=== PATIENT | female | born 1960 | race Hispanic/Latino ===

== ENCOUNTER 2019-04-02 18:29 | Inpatient (IN) | payer SELFPAY ==
[~2019-04-02] VITALS: Ht 149.9 cm; Wt 76.0 kg
[2019-04-02] MEDS ORDERED: SODIUM CHLORIDE 0.9% 1000ML 1,000 ML IV ONE (19:12)
[2019-04-02 19:14] LABS: BASOPHILS % (AUTO) 0.7 % (0.0-5.0); EOSINOPHILS % (AUTO) 2.2 % (0.0-8.0); HEMATOCRIT 31.5 % (36-48); LYMPHOCYTES % (AUTO) 9.5 % (21.0-51.0); MEAN CORPUSCULAR HEMOGLOBIN 24.1 pg (27.0-33.0); MEAN CORPUSCULAR HGB CONC 32.6 g/dL (32.0-36.0); MEAN CORPUSCULAR VOLUME 73.8 fL (79-99); MONOCYTES % (AUTO) 8.2 % (3.0-13.0); NEUTROPHILS % (AUTO) 79.4 % (40.0-77.0); NUCLEATED RED BLOOD CELLS 0.1 % (0.0-0.19); PLATELET COUNT (AUTO) 432 K/uL (130-400); RED BLOOD CELL COUNT(AUTO) 4.27 MIL/uL (4.00-5.50); RED CELL DISTRIBUTION WIDTH 15.9 % (11.0-15.5); WHITE BLOOD COUNT (AUTO) 18.5 K/uL (4.8-10.8)
[2019-04-02 19:15] LABS: APPEARANCE,URINE SL CLOUDY (CLEAR); BILIRUBIN,URINE NEGATIVE (NEGATIVE); COLOR,URINE YELLOW (YELLOW); GLUCOSE, URINE (UA) NEGATIVE (NEGATIVE); KETONES,URINE NEGATIVE (NEGATIVE); LEUKOCYTE ESTERASE ,URINE MODERATE (NEGATIVE); NITRATE,URINE NEGATIVE (NEGATIVE); OCCULT BLOOD,URINE LARGE (NEGATIVE); PROTEIN,URINE 30 mg/dL (NEGATIVE)
[2019-04-02 19:30] LABS: ALBUMIN 2.9 g/dL (3.5-5.0); BILIRUBIN,TOTAL 0.5 mg/dL (0.2-1.0); POTASSIUM 3.7 mmol/L (3.5-5.1); TOTAL PROTEIN, SERUM 8.4 g/dL (6.0-8.3)
[2019-04-02 19:35] LABS: BACTERIA,URINE Moderate /HPF (None Seen); MUCUS,URINE Few LPF (None Seen)
[2019-04-02] MEDS ORDERED: KETOROLAC TROMETHAMINE 30MG/ML ONE (20:22)
[2019-04-02] MEDS ORDERED: OSELTAMIVIR PHOSPHATE 75 MG CAP ONE (20:22)
[2019-04-02] MEDS ORDERED: DiphenhydrAMINE HCL 50 MG/ML VIAL ONE (20:22)
[2019-04-02] MEDS ORDERED: CEFTRIAXONE SODIUM 1 GM ONE (20:25)
[2019-04-02] MEDS ORDERED: LEVOFLOXACIN 500 MG TABLET ONE (20:34)
[2019-04-02] MEDS ORDERED: FAMOTIDINE/PF 20 MG/2 ML VIAL IV ONE (21:32)
[2019-04-02] MEDS ORDERED: KETOROLAC TROMETHAMINE 15MG/ML IV PRN (23:15)
[2019-04-02] MEDS ORDERED: ONDANSETRON HCL 4 MG/2 ML VIAL IVP PRN (23:15)
[2019-04-02] MEDS: SODIUM CHLORIDE 0.9% 1000ML 1,000 ML IV SCH (23:15)
[2019-04-02] MEDS ORDERED: LEVOFLOXACIN 500 MG/D5W 100 ML 100 ML IV SCH (23:15)
[2019-04-03 01:45] VITALS: BP 130/59
[2019-04-03 05:32] LABS: BASOPHILS % (AUTO) 0.6 % (0.0-5.0); EOSINOPHILS % (AUTO) 2.2 % (0.0-8.0); HEMATOCRIT 28.2 % (36-48); LYMPHOCYTES % (AUTO) 14.2 % (21.0-51.0); MEAN CORPUSCULAR HEMOGLOBIN 23.5 pg (27.0-33.0); MEAN CORPUSCULAR VOLUME 73.5 fL (79-99); MONOCYTES % (AUTO) 8.9 % (3.0-13.0); NEUTROPHILS % (AUTO) 74.1 % (40.0-77.0); PLATELET COUNT (AUTO) 391 K/uL (130-400); RED BLOOD CELL COUNT(AUTO) 3.84 MIL/uL (4.00-5.50); RED CELL DISTRIBUTION WIDTH 15.3 % (11.0-15.5); WHITE BLOOD COUNT (AUTO) 19.2 K/uL (4.8-10.8)
[2019-04-03 05:46] LABS: ALBUMIN 2.4 g/dL (3.5-5.0); BILIRUBIN,TOTAL 0.6 mg/dL (0.2-1.0); CREATININE 0.9 mg/dL (0.5-1.5); POTASSIUM 3.4 mmol/L (3.5-5.1); TOTAL PROTEIN, SERUM 7.3 g/dL (6.0-8.3)
[2019-04-03] MEDS: SODIUM CHLORIDE 0.9% 1000ML 1,000 ML IV SCH ×2 (07:53→15:34)
[2019-04-03 07:54] VITALS: BP 131/61
[2019-04-03] MEDS: CEFTRIAXONE SODIUM 1 GM IVP SCH ×2 (08:57→21:31)
[2019-04-03] MEDS: OSELTAMIVIR PHOSPHATE 75 MG CAP PO SCH (09:00)
[2019-04-03 10:36] LABS: % IRON SATURATION 9.1 % (22-44)
[2019-04-03 11:39] VITALS: BP 157/67
--- NOTE | 2019-04-03 11:45 | NUR ---
DR PACHECO VISITED WITH PATIENT. POC DISCUSSED. DR PACHECO EXPLAINED TO THE PATIENT THAT HE NEEDS TO TAKE HER TO SURGERY SOMETIME NEXT WEEK, RIGHT NOW SHE NEEDS TO GET BETTER AND GET THE INFECTION TREATED. DR PACHECO WILL FOLLOW UP NEXT WEEK.
--- NOTE | 2019-04-03 15:04 | NUR ---
DCP CM met with pt discussed dc plans. Pt is independent prior to admission, lives at home with spouse. Denies any equipments/services. Feels safe to go back home, still drives, spouse able to assist with transportation and needs as necessary. DC plan to home once stable. CM to cont to follow up. Addendum: 04/03/19 at 1505 by NYDIA ESCAMILLA LVN CM Amended: Links added.
[2019-04-03 16:00] VITALS: BP 158/75
[2019-04-03] MEDS: ZOSYN 3.375GM+NS 50ML 50 ML IV SCH (18:12)
[2019-04-03] MEDS ORDERED: POTASSIUM CHLORIDE 10% ELIXIR 20 MEQ/15 ML UDCUP PO PRN (18:30)
[2019-04-03 20:00] VITALS: BP 129/72
[2019-04-03] MEDS: ACETAMINOPHEN 325 MG TAB PO PRN (21:31)
[2019-04-04] VITALS (7 sets, daily range): BP systolic 103–144; BP diastolic 58–78
[2019-04-04] MEDS: ZOSYN 3.375GM+NS 50ML 50 ML IV SCH ×3 (02:14→19:19)
[2019-04-04] MEDS: SODIUM CHLORIDE 0.9% 1000ML 1,000 ML IV SCH ×4 (02:14→23:21)
[2019-04-04 05:19] LABS: HEMATOCRIT 28.6 % (36-48); MEAN CORPUSCULAR HEMOGLOBIN 23.8 pg (27.0-33.0); MEAN CORPUSCULAR HGB CONC 31.6 g/dL (32.0-36.0); MEAN CORPUSCULAR VOLUME 75.1 fL (79-99); NUCLEATED RED BLOOD CELLS 0.1 % (0.0-0.19); PLATELET COUNT (AUTO) 352 K/uL (130-400); RED BLOOD CELL COUNT(AUTO) 3.81 MIL/uL (4.00-5.50); RED CELL DISTRIBUTION WIDTH 15.8 % (11.0-15.5); WHITE BLOOD COUNT (AUTO) 17.5 K/uL (4.8-10.8)
[2019-04-04 05:35] LABS: CREATININE 0.8 mg/dL (0.5-1.5); MAGNESIUM 1.7 mg/dL (1.80-2.40); POTASSIUM 3.3 mmol/L (3.5-5.1)
[2019-04-04] MEDS ORDERED: MAGNESIUM 2GM PREMIX 50ML 50 ML IV PRN (06:45)
[2019-04-04 07:50] LABS: LYMPHOCYTES % (MANUAL) 5 % (22-44); MONOCYTES % (MANUAL) 6 % (2-9); SEGMENTED NEUTROPHILS % 89 % (40-70)
[2019-04-04 07:57] LABS: MAN.DIFF COMMENT-IMPRESSION MANUAL DIFFERENTIAL
[2019-04-04 07:59] LABS: PLATELET MORPHOLOGY COMMENT ADEQUATE
[2019-04-04] MEDS: OSELTAMIVIR PHOSPHATE 75 MG CAP PO SCH ×2 (09:05→20:31)
[2019-04-04] MEDS: ACETAMINOPHEN 325 MG TAB PO PRN (21:40)
[2019-04-05] MEDS: POTASSIUM CHLORIDE 20 MEQ ERTAB PO PRN (00:29)
[2019-04-05] MEDS: ZOSYN 3.375GM+NS 50ML 50 ML IV SCH ×3 (02:00→17:37)
[2019-04-05 03:41] VITALS: BP 127/60
[2019-04-05 05:32] LABS: MEAN CORPUSCULAR HEMOGLOBIN 23.9 pg (27.0-33.0); MEAN CORPUSCULAR HGB CONC 32.4 g/dL (32.0-36.0); NUCLEATED RED BLOOD CELLS 0.1 % (0.0-0.19); PLATELET COUNT (AUTO) 404 K/uL (130-400); RED BLOOD CELL COUNT(AUTO) 3.65 MIL/uL (4.00-5.50); RED CELL DISTRIBUTION WIDTH 15.7 % (11.0-15.5); WHITE BLOOD COUNT (AUTO) 14.9 K/uL (4.8-10.8)
[2019-04-05] MEDS: SODIUM CHLORIDE 0.9% 1000ML 1,000 ML IV SCH ×3 (06:49→19:55)
[2019-04-05 07:00] VITALS: BP 151/65
[2019-04-05 08:58] LABS: BAND NEUTROPHILS % (MANUAL) 1 % (0-2); LYMPHOCYTES % (MANUAL) 20 % (22-44); MAN.DIFF COMMENT-IMPRESSION MANUAL DIFFERENTIAL; MONOCYTES % (MANUAL) 8 % (2-9); PLATELET MORPHOLOGY COMMENT SLIGHT INCREASED; SEGMENTED NEUTROPHILS % 71 % (40-70)
[2019-04-05 11:00] VITALS: BP 143/62
[2019-04-05] MEDS: OSELTAMIVIR PHOSPHATE 75 MG CAP PO SCH ×2 (11:25→19:54)
[2019-04-05] MEDS: ACETAMINOPHEN 325 MG TAB PO PRN (14:46)
[2019-04-05 16:00] VITALS: BP 133/63
[2019-04-05 19:15] VITALS: BP 154/76
[2019-04-06 00:18] VITALS: BP 169/80
[2019-04-06] MEDS: ZOSYN 3.375GM+NS 50ML 50 ML IV SCH ×3 (01:07→17:42)
[2019-04-06] MEDS: ACETAMINOPHEN 325 MG TAB PO PRN ×2 (01:08→20:20)
[2019-04-06] MEDS: SODIUM CHLORIDE 0.9% 1000ML 1,000 ML IV SCH ×2 (03:34→20:19)
[2019-04-06 04:20] VITALS: BP 133/65
[2019-04-06 05:32] LABS: MEAN CORPUSCULAR HEMOGLOBIN 23.9 pg (27.0-33.0); MEAN CORPUSCULAR HGB CONC 31.8 g/dL (32.0-36.0); MEAN CORPUSCULAR VOLUME 75.2 fL (79-99); PLATELET COUNT (AUTO) 431 K/uL (130-400); RED BLOOD CELL COUNT(AUTO) 3.59 MIL/uL (4.00-5.50); RED CELL DISTRIBUTION WIDTH 15.6 % (11.0-15.5); WHITE BLOOD COUNT (AUTO) 16.3 K/uL (4.8-10.8)
[2019-04-06 05:43] LABS: BAND NEUTROPHILS % (MANUAL) 16 % (0-2); BASOPHILS % (MANUAL) 2 % (0-2); EOSINOPHILS % (MANUAL) 4 % (1-6); LYMPHOCYTES % (MANUAL) 18 % (22-44); MAN.DIFF COMMENT-IMPRESSION MANUAL DIFFERENTIAL; MONOCYTES % (MANUAL) 2 % (2-9); PLATELET MORPHOLOGY COMMENT INCREASED; SEGMENTED NEUTROPHILS % 58 % (40-70)
[2019-04-06 07:30] VITALS: BP 155/80
[2019-04-06 11:07] VITALS: BP 142/75
[2019-04-06] MEDS: OSELTAMIVIR PHOSPHATE 75 MG CAP PO SCH ×2 (12:04→20:19)
[2019-04-06 16:00] VITALS: BP 149/76
[2019-04-06 19:24] VITALS: BP 163/77
[2019-04-07] VITALS (7 sets, daily range): BP systolic 116–157; BP diastolic 60–86
[2019-04-07] MEDS: ZOSYN 3.375GM+NS 50ML 50 ML IV SCH ×3 (01:20→14:44)
[2019-04-07] MEDS: SODIUM CHLORIDE 0.9% 1000ML 1,000 ML IV SCH ×4 (03:07→22:59)
[2019-04-07 05:48] LABS: HEMATOCRIT 27.4 % (36-48); MEAN CORPUSCULAR HEMOGLOBIN 23.3 pg (27.0-33.0); MEAN CORPUSCULAR HGB CONC 31.5 g/dL (32.0-36.0); NUCLEATED RED BLOOD CELLS 0.1 % (0.0-0.19); PLATELET COUNT (AUTO) 448 K/uL (130-400); RED CELL DISTRIBUTION WIDTH 15.8 % (11.0-15.5); WHITE BLOOD COUNT (AUTO) 16.4 K/uL (4.8-10.8)
[2019-04-07 08:39] LABS: BASOPHILS % (MANUAL) 1 % (0-2); EOSINOPHILS % (MANUAL) 6 % (1-6); LYMPHOCYTES % (MANUAL) 20 % (22-44); MONOCYTES % (MANUAL) 2 % (2-9); SEGMENTED NEUTROPHILS % 71 % (40-70)
[2019-04-07 08:40] LABS: MAN.DIFF COMMENT-IMPRESSION MANUAL DIFFERENTIAL; PLATELET MORPHOLOGY COMMENT GIANT PLTS PRESENT
[2019-04-07] MEDS: OSELTAMIVIR PHOSPHATE 75 MG CAP PO SCH ×2 (09:54→20:27)
[2019-04-07] MEDS: FERROUS SULFATE 325 MG TABLET.DR PO SCH (20:27)
[2019-04-08] VITALS (23 sets, daily range): BP systolic 83–144; BP diastolic 38–80
[2019-04-08] MEDS: ZOSYN 3.375GM+NS 50ML 50 ML IV SCH ×3 (01:13→14:52)
[2019-04-08 06:07] LABS: BASOPHILS % (AUTO) 0.8 % (0.0-5.0); EOSINOPHILS % (AUTO) 4.6 % (0.0-8.0); HEMATOCRIT 31.1 % (36-48); LYMPHOCYTES % (AUTO) 17.1 % (21.0-51.0); MEAN CORPUSCULAR HEMOGLOBIN 22.7 pg (27.0-33.0); MEAN CORPUSCULAR HGB CONC 30.2 g/dL (32.0-36.0); MEAN CORPUSCULAR VOLUME 75.1 fL (79-99); MONOCYTES % (AUTO) 3.6 % (3.0-13.0); NEUTROPHILS % (AUTO) 72.6 % (40.0-77.0); NUCLEATED RED BLOOD CELLS 0.1 % (0.0-0.19); PLATELET COUNT (AUTO) 652 K/uL (130-400); RED BLOOD CELL COUNT(AUTO) 4.14 MIL/uL (4.00-5.50); RED CELL DISTRIBUTION WIDTH 15.7 % (11.0-15.5); WHITE BLOOD COUNT (AUTO) 17.5 K/uL (4.8-10.8)
[2019-04-08 06:29] LABS: ALBUMIN 2.6 g/dL (3.5-5.0); BILIRUBIN,TOTAL 0.4 mg/dL (0.2-1.0); CREATININE 0.8 mg/dL (0.5-1.5); POTASSIUM 3.2 mmol/L (3.5-5.1); TOTAL PROTEIN, SERUM 8.3 g/dL (6.0-8.3)
[2019-04-08] MEDS: SODIUM CHLORIDE 0.9% 1000ML 1,000 ML IV SCH ×4 (06:42→22:42)
[2019-04-08] MEDS ORDERED: POTASSIUM CHLORIDE 10MEQ/100ML 10 MEQ/100 ML ML IV SCH (08:30)
[2019-04-08] MEDS: FERROUS SULFATE 325 MG TABLET.DR PO SCH ×3 (08:52→21:14)
[2019-04-08] MEDS: POTASSIUM CHLORIDE 20MEQ/100ML 100 ML IV PRN (08:56)
[2019-04-08] MEDS: LIDOCAINE HCL-MPF 1% 2ML VIAL IV PRN (09:27)
[2019-04-08] MEDS ORDERED: POTASSIUM CHLORIDE 20MEQ/100ML 100 ML IV SCH (10:00)
[2019-04-08] MEDS ORDERED: LACTATED RINGERS 1000ML 1,000 ML IV ONE (11:18)
[2019-04-08] MEDS ORDERED: DEXAMETHASONE SOD PHOSPHATE 10MG/ML 1ML VIAL ONE (11:23)
[2019-04-08] MEDS ORDERED: PROPOFOL 10 MG/ML 20ML VIAL IV ONE ×2 (11:23→11:36)
[2019-04-08] MEDS ORDERED: LIDOCAINE PF 2% 5ML ABBOJECT ONE (11:23)
[2019-04-08] MEDS ORDERED: ONDANSETRON HCL 4 MG/2 ML VIAL ONE (11:23)
[2019-04-08] MEDS ORDERED: MIDAZOLAM HCL 1 MG/ML 2ML VIAL ONE (11:23)
[2019-04-08] MEDS ORDERED: FENTANYL CITRATE PF 50 MCG/1 ML 2ML VIAL ONE (11:24)
[2019-04-08] MEDS ORDERED: ESTROGENS,CONJUGATED 0.625 MG/GM 42.5 GM VAG CRM VG ONE (12:15)
[2019-04-08] MEDS ORDERED: DEXTROSE 5%-LACTATED RINGERS 1,000 ML IV PRN (12:29)
[2019-04-08] MEDS ORDERED: BISACODYL 10 MG SUPP.RECT RC PRN (12:30)
[2019-04-08] MEDS ORDERED: DOCUSATE SODIUM 100 MG CAP PO PRN (12:30)
[2019-04-08] MEDS ORDERED: SIMETHICONE 80 MG TAB.CHEW PO PRN (12:30)
[2019-04-08] MEDS ORDERED: MEPERIDINE-PF 75 MG/ML SYG IM PRN (12:30)
[2019-04-08] MEDS ORDERED: PROMETHAZINE HCL 25 MG/ML 1ML AMPULE IM PRN ×2 (12:30)
[2019-04-08] MEDS ORDERED: IBUPROFEN 600 MG TABLET PO PRN (12:30)
[2019-04-08] MEDS ORDERED: MEPERIDINE-PF 25 MG/ML SYG ONE (13:03)
[2019-04-08] MEDS: ACETAMINOPHEN-CODEINE 300/30MG TAB PO PRN (14:14)
[2019-04-08] MEDS: POTASSIUM CHLORIDE 20 MEQ ERTAB PO PRN (14:52)
--- NOTE | 2019-04-08 16:40 | NUR ---
Nutrition Intervention: Nutrition screen based on LOS x 6 days. Pt. S/P D&C(04/08/19). Pt. has Clear liquid diet ordered. Pt. states has not had anything to eat today due to procedure. Labs reviewed(Alb 2.6). LBM: 04/08/19, per pt. SR-20, elastic. BMI: 33.8, Obesity Grade 1. Recommendations: 1) Rec. advance diet as tolerated to Gen. Heart Healthy. 2) Rec. 30ml ProMod BID with B'fast and dinner meals. 3) Continue to monitor pt's nutritional status. 4) Consult RD as nutrition concerns arise. Addendum: 04/08/19 at [address] Amended: Links added.
[2019-04-09] VITALS (7 sets, daily range): BP systolic 94–157; BP diastolic 59–85
[2019-04-09] MEDS: ZOSYN 3.375GM+NS 50ML 50 ML IV SCH ×3 (01:37→17:34)
[2019-04-09 06:11] LABS: BASOPHILS % (AUTO) 0.8 % (0.0-5.0); EOSINOPHILS % (AUTO) 3.7 % (0.0-8.0); HEMATOCRIT 27.5 % (36-48); LYMPHOCYTES % (AUTO) 11.6 % (21.0-51.0); MEAN CORPUSCULAR HEMOGLOBIN 22.8 pg (27.0-33.0); MEAN CORPUSCULAR HGB CONC 29.8 g/dL (32.0-36.0); MEAN CORPUSCULAR VOLUME 76.4 fL (79-99); MONOCYTES % (AUTO) 3.7 % (3.0-13.0); NEUTROPHILS % (AUTO) 79.2 % (40.0-77.0); PLATELET COUNT (AUTO) 546 K/uL (130-400); RED CELL DISTRIBUTION WIDTH 15.9 % (11.0-15.5); WHITE BLOOD COUNT (AUTO) 17.1 K/uL (4.8-10.8)
[2019-04-09] MEDS: SODIUM CHLORIDE 0.9% 1000ML 1,000 ML IV SCH ×3 (06:16→20:13)
[2019-04-09 06:31] LABS: ALBUMIN 2.1 g/dL (3.5-5.0); BILIRUBIN,TOTAL 0.4 mg/dL (0.2-1.0); CREATININE 0.9 mg/dL (0.5-1.5)
[2019-04-09] MEDS: POTASSIUM CHLORIDE 20MEQ/100ML 100 ML IV PRN (06:45)
[2019-04-09] MEDS: LIDOCAINE HCL-MPF 1% 2ML VIAL IV PRN (06:46)
[2019-04-09] MEDS: ACETAMINOPHEN-CODEINE 300/30MG TAB PO PRN (10:20)
[2019-04-09] MEDS: POTASSIUM CHLORIDE 20 MEQ ERTAB PO PRN ×4 (10:21→20:12)
[2019-04-09] MEDS: FERROUS SULFATE 325 MG TABLET.DR PO SCH ×3 (10:39→20:12)
--- NOTE | 2019-04-09 13:56 | NUR ---
dr yoon rounded at the bedside. explained the poc to patient.
[2019-04-09] MEDS: ACETAMINOPHEN 325 MG TAB PO PRN (18:17)
[2019-04-09] MEDS ORDERED: COMPOUND IV MISC 1 EACH IVSOLN MISC PRN (22:00)
[2019-04-10] MEDS: ZOSYN 3.375GM+NS 50ML 50 ML IV SCH ×2 (00:57→10:05)
[2019-04-10] MEDS: ACETAMINOPHEN 325 MG TAB PO PRN ×3 (00:57→10:06)
[2019-04-10 04:00] VITALS: BP 119/60
[2019-04-10 05:37] LABS: HEMATOCRIT 30.1 % (36-48); MEAN CORPUSCULAR HEMOGLOBIN 23.1 pg (27.0-33.0); MEAN CORPUSCULAR HGB CONC 30.2 g/dL (32.0-36.0); MEAN CORPUSCULAR VOLUME 76.4 fL (79-99); PLATELET COUNT (AUTO) 565 K/uL (130-400); RED BLOOD CELL COUNT(AUTO) 3.94 MIL/uL (4.00-5.50); RED CELL DISTRIBUTION WIDTH 15.9 % (11.0-15.5); WHITE BLOOD COUNT (AUTO) 16.3 K/uL (4.8-10.8)
[2019-04-10 05:54] LABS: ALBUMIN 2.3 g/dL (3.5-5.0); BILIRUBIN,TOTAL 0.4 mg/dL (0.2-1.0); CREATININE 0.7 mg/dL (0.5-1.5); MAGNESIUM 2.4 mg/dL (1.80-2.40); PHOSPHORUS 2.4 mg/dL (2.5-4.9); POTASSIUM 3.8 mmol/L (3.5-5.1); TOTAL PROTEIN, SERUM 7.3 g/dL (6.0-8.3)
[2019-04-10 07:00] VITALS: BP 151/72
[2019-04-10 07:39] LABS: BASOPHILS % (MANUAL) 1 % (0-2); EOSINOPHILS % (MANUAL) 6 % (1-6); LYMPHOCYTES % (MANUAL) 5 % (22-44); MAN.DIFF COMMENT-IMPRESSION MANUAL DIFFERENTIAL; MONOCYTES % (MANUAL) 7 % (2-9); SEGMENTED NEUTROPHILS % 81 % (40-70)
[2019-04-10 08:32] LABS: PLATELET MORPHOLOGY COMMENT MARKED DECREASE
[2019-04-10] MEDS ORDERED: IRON SUCROSE COMPLEX 100 MG in SODIUM CHLORIDE 0.9% 50 ML IV SCH (09:00)
[2019-04-10] MEDS ORDERED: DOCU100T PO (09:43)
[2019-04-10] MEDS ORDERED: FERR325T22 PO (09:43)
[2019-04-10] MEDS ORDERED: ACET-66 PO (09:43)
[2019-04-10] MEDS: FERROUS SULFATE 325 MG TABLET.DR PO SCH (10:05)
[2019-04-10] MEDS ORDERED: HC530C TP (11:37)
== END 2019-04-10 14:00 | disposition home or self-care (01) | DRG 854 ==
LOC: EDH 18:29 → EDHIP 18:30 → 3CH 04-03 01:01
PROVIDERS: ADMIT Internal Medicine; ATTEND Internal Medicine
PROC: 0UBGXZX Excision of Vagina, External Approach, Diagnostic (ICD-10-PCS; principal; 2019-04-08 11:26)
DX: A41.89 Other specified sepsis (principal); E87.1 Hypo-osmolality and hyponatremia; E46 Unspecified protein-calorie malnutrition; R18.8 Other ascites; K62.5 Hemorrhage of anus and rectum; N39.0 Urinary tract infection, site not specified; R65.20 Severe sepsis without septic shock; E66.9 Obesity, unspecified; J10.1 Influenza due to other identified influenza virus with other respiratory manifestations; E87.6 Hypokalemia; E86.1 Hypovolemia; N92.1 Excessive and frequent menstruation with irregular cycle; D50.9 Iron deficiency anemia, unspecified; N89.8 Other specified noninflammatory disorders of vagina; K08.89 Other specified disorders of teeth and supporting structures; K59.00 Constipation, unspecified; Z68.33 Body mass index [BMI] 33.0-33.9, adult; Z88.1 Allergy status to other antibiotic agents
CPT/HCPCS: 36415; 70486; 71045; 74176; 76856; 80048; 80053; 81001; 82150; 82270; 82550; 83540; 83550; 83605; 83690; 83735; 84100; 84145; 84484; 85025; 86304; 86850; 86900; 86901; 87040; 87088; 87804; 93005; A4344; A4351; G0378; J0696; J1100; J1200; J1756; J1885; J2001; J2175; J2250; J2405; J2543; J2704; J3010; J3475; J3480; J3490; J7030; J7120